=== PATIENT | female | born 1950 | race Caucasian/White ===

== ENCOUNTER → 2016-12-14 | Outpatient (CLI) | payer BC ==
[~2016-12-14] MED LIST: ALBUTEROL INHALER INH; ANAS1TAB PO; BUPR150T73 PO; BUPR200T PO; CHOL10003 PO; CLON0.1T PO; ESZO3TAB9 PO; MESA1.2T PO; MESA1000 RC; TURMERIC PO; VENL75CA PO
== END | disposition home or self-care (01) ==
LOC: STAR 12:34
PROVIDERS: ATTEND Plastic Surgery
DX: Z01.810 Encounter for preprocedural cardiovascular examination (principal)
CPT/HCPCS: 93005

== ENCOUNTER 2016-12-19 06:45 | Inpatient (IN) | payer BC ==
[~2016-12-19] VITALS: Ht 165.1 cm; Wt 73.1 kg
[2016-12-19] MEDS ORDERED: LACTATED RINGERS 1,000 ML IV SCH (07:22)
[2016-12-19 07:23] VITALS: BP 143/87
[2016-12-19] MEDS ORDERED: SCOPOLAMINE PATCH, 1.5MG PATCH.TD72 TD ONE ×2 (08:39)
[2016-12-19] MEDS ORDERED: BUPIVACAINE/PF 0.5% ONE (08:57)
[2016-12-19] MEDS ORDERED: BUPIVACAINE/PF 0.25% ONE (08:57)
[2016-12-19] MEDS ORDERED: LIDOCAINE 1%, 2ML ONE (09:00)
[2016-12-19] MEDS ORDERED: KETAMINE 10 MG/ML, 20ML ONE (09:01)
[2016-12-19] MEDS ORDERED: FENTANYL PF 250 MCG/5ML ONE (09:01)
[2016-12-19] MEDS ORDERED: HYDROmorphone 1 MG/ML, 1ML ONE (09:02)
[2016-12-19] MEDS ORDERED: ROCURONIUM 10 MG/ML ONE (09:12)
[2016-12-19] MEDS ORDERED: PROPOFOL 10 MG/ML, 20ML ONE (09:12)
[2016-12-19] MEDS ORDERED: ONDANSETRON 2MG/ML, 2ML ONE (09:12)
[2016-12-19] MEDS ORDERED: METOCLOPRAMIDE 5 MG/ML, 2ML ONE (09:12)
[2016-12-19] MEDS ORDERED: DEXAMETHASONE 4 MG/ML, 1ML ONE (09:12)
[2016-12-19] MEDS ORDERED: LIDOCAINE 1%, 2ML SQ PRN (09:30)
[2016-12-19] MEDS ORDERED: BACITRACIN 50,000 UNIT ONE (10:03)
[2016-12-19] MEDS ORDERED: ONDANSETRON 2MG/ML, 2ML IVPush PRN (11:30)
[2016-12-19] MEDS ORDERED: LABETALOL 5MG/ML, 20ML IV PRN (11:30)
[2016-12-19] MEDS ORDERED: OXYcodone 5 MG/5 ML ORAL.SOL UDC PO PRN (11:30)
[2016-12-19] MEDS ORDERED: MIDAZOLAM 1 MG/ML, 2ML IV PRN (11:30)
[2016-12-19] MEDS ORDERED: hydrALAzine 20 MG/ML, 1ML IV PRN (11:30)
[2016-12-19] MEDS ORDERED: PROMETHAZINE 25 MG/ML, 1ML IV PRN (11:30)
[2016-12-19] MEDS ORDERED: FENTANYL PF 100 MCG/2ML IV PRN (11:30)
[2016-12-19] MEDS ORDERED: HYDROmorphone 1 MG/ML, 1ML IV PRN (11:30)
[2016-12-19] MEDS ORDERED: MEPERIDINE/PF 25MG/0.5ML IVPush PRN (11:30)
[2016-12-19] MEDS ORDERED: hydrALAzine 20 MG/ML, 1ML ONE (12:15)
[2016-12-19] MEDS ORDERED: ACETAMINOPHEN 650 MG/20.3 ML UDC PO ONE (12:21)
[2016-12-19] MEDS ORDERED: OXYcodone 5 MG/5 ML ORAL.SOL UDC ONE (12:28)
[2016-12-19] MEDS ORDERED: ACETAMINOPHEN 650 MG/20.3 ML UDC ONE (12:28)
[2016-12-19 13:33] VITALS: BP 119/76
[2016-12-19] MEDS ORDERED: KETOROLAC 30 MG/1 ML IV PRN (14:00)
[2016-12-19] MEDS ORDERED: OXYcodone/APAP 5/325MG TABLET PO PRN (14:00)
[2016-12-19 19:00] VITALS: BP 105/72
[2016-12-19] MEDS: LACTATED RINGERS 1,000 ML IV SCH (21:28)
[2016-12-19] MEDS: HYDROmorphone 2 MG/ML, 1ML IV PRN (21:29)
[2016-12-20 00:04] VITALS: BP 129/79
[2016-12-20] MEDS: ONDANSETRON 2MG/ML, 2ML IVPush PRN ×2 (01:46→08:26)
[2016-12-20] MEDS: HYDROmorphone 2 MG/ML, 1ML IV PRN ×2 (01:46→06:13)
[2016-12-20 04:10] VITALS: BP 119/79
[2016-12-20 07:05] VITALS: BP 127/72
[2016-12-20] MEDS: PROMETHAZINE 12.5 MG SUPP PR PRN ×3 (11:21→20:15)
[2016-12-20] MEDS: LACTATED RINGERS 1,000 ML IV SCH ×2 (11:23→23:38)
[2016-12-20 15:45] VITALS: BP 131/74
[2016-12-20] MEDS ORDERED: PROMETHAZINE 25 MG SUPP PR ONE (20:11)
[2016-12-20 20:23] VITALS: BP 128/77
[2016-12-21] MEDS ORDERED: PROMETHAZINE 25 MG SUPP PR ONE (00:32)
[2016-12-21] MEDS: PROMETHAZINE 12.5 MG SUPP PR PRN ×3 (00:57→09:40)
[2016-12-21 03:31] VITALS: BP 138/77
[2016-12-21 08:20] VITALS: BP 149/84
[2016-12-21] MEDS: LACTATED RINGERS 1,000 ML IV SCH (09:41)
[2016-12-21 10:15] VITALS: BP 146/79
== END 2016-12-21 10:35 | disposition home or self-care (01) | DRG 585 ==
LOC: OUT 06:45 → ORIP 12:05 → 4NOR 13:25 → OBSVTOIN 20:25
PROVIDERS: ADMIT Plastic Surgery; ATTEND Plastic Surgery
PROC: 0HRU075 Replacement of Left Breast using Latissimus Dorsi Myocutaneous Flap, Open Approach (ICD-10-PCS; principal; 2016-12-19 09:00)
DX: N65.0 Deformity of reconstructed breast (principal); Z90.12 Acquired absence of left breast and nipple; Z85.3 Personal history of malignant neoplasm of breast
CPT/HCPCS: C1729; G0378; J1100; J1170; J1885; J2405; J2704; J3010; J3490; J0360; J2765; J7120

== ENCOUNTER → 2018-09-15 | Outpatient (CLI) | payer BC ==
[~2018-09-15] MED LIST changes: -CLON0.1T PO; +CLON0.1T22 PO; +ESZO3TAB28 PO; -ESZO3TAB9 PO; -MESA1000 RC; +MESA10003 RC
== END | disposition home or self-care (01) ==
LOC: CFH 13:27
PROVIDERS: ATTEND Nurse Practitioner Family
DX: N95.9 Unspecified menopausal and perimenopausal disorder (principal)
CPT/HCPCS: 77080